=== PATIENT | female | born 1945 | race Caucasian/White ===

== ENCOUNTER 2020-05-05 11:24 | Observation (INO) | payer MEDICARE ==
[~2020-05-05] VITALS: Ht 162.5 cm; Wt 77.8 kg
[2020-05-05 11:38] VITALS: BP 160/70
--- NOTE | 2020-05-05 12:00 | NUR ---
GAVE PT. WARM BLANKET.
[2020-05-05 12:08] LABS: BASO # 0.1 10*3/uL (0.0-0.1); BASO % 0.8 % (0.0-1.0); EOS # 0.2 10*3/uL (0.0-0.4); EOS % 1.6 % (1.0-4.0); HEMATOCRIT 38.5 % (37.0-47.0); LYMPH # 2.4 10*3/uL (1.3-4.4); LYMPH % 24.2 % (27.0-41.0); MEAN CELL VOLUME 92.1 fl (81.0-99.0); MEAN CORPUSCULAR HGB 29.7 pg (27.0-31.0); MEAN CORPUSCULAR HGB CONC 32.2 g/dl (33.0-37.0); MONO # 0.8 10*3/uL (0.1-1.0); MONO % 7.6 % (3.0-9.0); NEUT # 6.3 10*3/uL (2.3-7.9); NEUT % 64.4 % (47.0-73.0); PLATELET COUNT AUTOMATED 251 10*3/uL (130-400); RED BLOOD COUNT 4.18 10*6/uL (4.10-5.10); RED CELL DISTRI WIDTH 13.2 % (0-14.5); WHITE BLOOD COUNT 9.8 10*3/uL (4.8-10.8)
[2020-05-05 12:17] LABS: ACT PARTIAL THROMBO TIME 22.9 SECONDS (20.0-32.1)
[2020-05-05 12:24] LABS: ALBUMIN 3.4 gm/dl (3.1-4.5); ALKALINE PHOSPHATASE 80 U/L (45-117); BUN 18 mg/dl (7-24); CHLORIDE 107 mmol/L (98-107); CREATININE 1.03 mg/dL (0.55-1.02); LIPASE 92 U/L (73-393); POTASSIUM 3.6 mmol/L (3.5-5.1); SGOT/AST 17 IU/L (3-35); SGPT/ALT 20 U/L (12-78); SODIUM 140 mmol/L (136-145); TOTAL PROTEIN 7.6 gm/dL (6.4-8.2)
[2020-05-05 12:35] LABS: TROPONIN I < 0.015 ng/ml (<0.045)
[2020-05-05 12:54] VITALS: BP 118/68
--- NOTE | 2020-05-05 13:00 | NUR ---
PT. RESTING IN BED WITH EYES CLOSED. WILL CONT TO MONITOR. CALL LIGHT IN REACH. IN NO DISTRESS AT THIS TIME.
--- NOTE | 2020-05-05 13:25 | NUR ---
CLEANED PT. UP PUT BRIEFS ON AND CHANGED BEDDING.
[2020-05-05 15:32] LABS: BILIRUBIN NEGATIVE; BLOOD NEGATIVE (NEGATIVE); CLARITY CLEAR (CLEAR); COLOR YELLOW (YELLOW); GLUCOSE NEGATIVE; KETONE NEGATIVE; LEUKO ESTERASE NEGATIVE (NEGATIVE); NITRITE NEGATIVE (NEGATIVE); SPECIFIC GRAVITY < 1.005 (1.001-1.030); UROBILINOGEN 0.2 E.U./dl (0.0-1.0)
--- NOTE | 2020-05-05 15:35 | NUR ---
A 74, admitted to , under the services of ESTEFANY Presley DO with a diagnosis of NEAR SYNCOPE AND NAUSEA/VOMITING. Chief complaint is NAUSEA, NEAR SYNCOPE. Patient arrived via stretcher from ER. Monitor applied. Initial assessment completed. Vital signs taken and recorded. ESTEFANY PRESLEY DO notified of admission to the unit. Orders received. See assessment for past medical history, medications and allergies. Patient and/or family oriented to unit. [address] visitation policy reviewed. Clothing/patient valuable form completed. LAYNE VALERA
[2020-05-05 15:38] VITALS: BP 136/64
[2020-05-05 15:40] LABS: RBC 0-2 rbc/hpf (0-2); WBC 0-2 wbc/hpf (0-5)
[2020-05-05 15:41] LABS: EPITHELIAL CELLS 0-2
[2020-05-05 16:00] VITALS: BP 153/63
[2020-05-05] MEDS ORDERED: OMEPRAZOLE MAGN20 MG PO (18:40)
[2020-05-05] MEDS ORDERED: TIMOLOL MALEATE10 M1 OPH (18:40)
[2020-05-05] MEDS ORDERED: MULTIVITAMINS1 EAC5 PO (18:41)
--- NOTE | 2020-05-05 18:45 | NUR ---
MED REC UPDATED WITH PATIENT. DR ESTRADA NOTIFIED.
--- NOTE | 2020-05-05 19:41 | NUR ---
PATIENT RESTING IN BED WITH IV INFUSING PER ORDER. DENIES NEEDS. DENIES DIZZINESS OR LIGHT HEADEDNESS. BED IN LOWEST POSITION, CALL LIGHT IN REACH
--- NOTE | 2020-05-05 19:55 | NUR ---
NOTIFIED OF PT'S REQUEST FOR HOME EYE DROPS. NEW ORDERS TO FOLLOW PER .
[2020-05-05 20:00] VITALS: BP 141/60
--- NOTE | 2020-05-05 23:02 | NUR ---
ATTEMPTED TO CALL THE RESIDENT ABOUT PATIENT REQUESTING SOMETHING FOR HEARTBURN. NO ANSWER
--- NOTE | 2020-05-05 23:26 | NUR ---
PRILOSEC GIVEN EARLY PER DR ARGUELLES FOR C/O HEARTBURN
[2020-05-06] VITALS: BP 114/52
--- NOTE | 2020-05-06 02:04 | NUR ---
PATIENT RESTING IN BED WITH NO S/S OF DISTRESS. BED IN LOWEST POSITION, CALL LIGHT IN REACH
--- NOTE | 2020-05-06 04:29 | NUR ---
PATIENT CALLED OUT STATING HER IV WAS SWOLLEN. LEFT UPPER ARM EDEMATOUS. PATIENT DENIES IT BEING PAINFUL. ICE PACK GIVEN. IV HEP LOCK REMOVED WITH CATHETER INTACT. SCANT BLEEDING NOTED. 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 PATIENT STATES THAT SHE HAS BEEN TOLD IN THE PAST NOT TO HAVE IV'S, BLOOD WORK. OR BLOOD PRESSURES IN THAT ARM, BUT THAT SHE HAS BEEN LETTING PEOPLE DO IT ANYWAYS. PATIENT WAS EDUCATED ON THE IMPORTANCE OF NOT GETTING BLOOD WORK, BLOOD PRESSURES, OR IV'S IN THAT ARM. PATIENT VERBALIZED UNDERSTANDING. PATIENT REQUESTS TO WAIT A LITTLE WHILE TO PLACE ANOTHER IV.
--- NOTE | 2020-05-06 05:31 | NUR ---
DR ARGUELLES AWARE OF PATIENT NOT HAVING AN IV AT THIS TIME
[2020-05-06 06:52] LABS: BASO # 0.1 10*3/uL (0.0-0.1); BASO % 0.6 % (0.0-1.0); EOS # 0.2 10*3/uL (0.0-0.4); EOS % 2.1 % (1.0-4.0); HEMATOCRIT 36.3 % (37.0-47.0); LYMPH # 2.1 10*3/uL (1.3-4.4); LYMPH % 25.3 % (27.0-41.0); MEAN CELL VOLUME 91.9 fl (81.0-99.0); MEAN CORPUSCULAR HGB 29.4 pg (27.0-31.0); MEAN PLATELET VOLUME 9.9 fl (9.6-12.3); MONO # 0.9 10*3/uL (0.1-1.0); MONO % 10.9 % (3.0-9.0); NEUT # 4.9 10*3/uL (2.3-7.9); NEUT % 60.6 % (47.0-73.0); PLATELET COUNT AUTOMATED 245 10*3/uL (130-400); RED BLOOD COUNT 3.95 10*6/uL (4.10-5.10); RED CELL DISTRI WIDTH 13.4 % (0-14.5); WHITE BLOOD COUNT 8.1 10*3/uL (4.8-10.8)
[2020-05-06 07:23] LABS: CHLORIDE 112 mmol/L (98-107); POTASSIUM 3.5 mmol/L (3.5-5.1); SODIUM 142 mmol/L (136-145)
--- NOTE | 2020-05-06 07:30 | NUR ---
Occupational therapy order and nursing screen received. Will follow up with the patient for completion of an OT evaluation. Thank you. Jacinta Fields, OTR/L
--- NOTE | 2020-05-06 07:30 | NUR ---
PHYSICAL THERAPY Screen and PT eval received will follow thank you Donna Brown PT
[2020-05-06 07:40] LABS: ALKALINE PHOSPHATASE 80 U/L (45-117); BUN 13 mg/dl (7-24); CREATININE 0.97 mg/dL (0.55-1.02); FREE T4 0.88 ng/dl (0.76-1.46); SGOT/AST 13 IU/L (3-35); SGPT/ALT 16 U/L (12-78); THYROID STIM HORMONE (HS) 0.743 uIU/ml (0.358-4.75); TOTAL PROTEIN 6.5 gm/dL (6.4-8.2)
[2020-05-06 07:43] LABS: ACT PARTIAL THROMBO TIME 24.4 SECONDS (20.0-32.1)
[2020-05-06 08:00] VITALS: BP 126/50
--- NOTE | 2020-05-06 08:05 | NUR ---
PT RESTING IN BED WITH HOB ELEVATED. RESP-EASY AND REGULAR. NO C/O AT THIS TIME. CALL LIGHT IN REACH. SEE SHIFT ASSESSMENT.
--- NOTE | 2020-05-06 09:00 | NUR ---
Cd Mixer Helper in to talk to patient. Patient states lives at home with . There are no steps in the home. Physician: jim coleman Pharmacy: [facility] health services: none Patient's level of ADLs: INDEPENDENT Patient has working utilities: all working DME: none Follow-up physician's appointment after d/c: will be made by hospitalist nurse director upon discharge Does patient want to access PORTAL?: no Discharge plan discussed with patient, she states she lives at home with , she is independent in adls and ambulation, she stated she will return home when discharged and denies any home needs, case management will follow. ILA CARDOSO
[2020-05-06 11:59] VITALS: BP 122/67
--- NOTE | 2020-05-06 12:00 | NUR ---
Discharge instructions reviewed with patient/family. Patient receptive and verbalizes understanding. Follow-up care arranged. Written instructions given to patient/family. HEPLOCK REMOVED. MONITOR REMOVED. ESCORTED VIA WHEELCHAIR FOR DISCHARGE. REA SKAGGS
== END 2020-05-06 12:00 | disposition home or self-care (01) ==
LOC: ED 11:24 → 4E 14:26 → EDHOLD 14:26 → 4E 15:12
PROVIDERS: Emergency Medicine; Family Medicine; ADMIT Internal Medicine; ATTEND Internal Medicine
DX: R11.2 Nausea with vomiting, unspecified (principal); R55 Syncope and collapse; R79.82 Elevated C-reactive protein (CRP); E87.2 Acidosis; R73.9 Hyperglycemia, unspecified; R00.1 Bradycardia, unspecified; K21.9 Gastro-esophageal reflux disease without esophagitis